=== PATIENT | female | born 1965 | race American Indian/Alaskan Native ===

== ENCOUNTER 2017-03-20 10:58 | Outpatient (CLI) | payer OTHER ==
--- NOTE | 2017-03-20 14:25 | Mammography Report ---
The patient had this exam on the date indicated above. It was indicated to us that previous films should be available that would be helpful in providing optimal evaluation with regards to the current study. A final report will be issued, pending receipt of the prior study. CAD was utilized.
== END 2017-03-20 10:59 | disposition home or self-care (01) ==
LOC: MAMMO 10:58
PROVIDERS: ATTEND Nurse Practitioner Family
DX: Z12.31 Encounter for screening mammogram for malignant neoplasm of breast (principal); I10 Essential (primary) hypertension
CPT/HCPCS: 77067; G0202

== ENCOUNTER 2017-06-04 07:35 | Outpatient (CLI) | payer OTHER ==
--- NOTE | 2017-06-04 09:47 | Ultrasound Report ---
Diagnostic left mammogram and targeted left breast ultrasound. History: Recall. Findings: The spot compression images of the upper left breast demonstrate effacement of the previously noted 2 parenchymal asymmetries. On the 90 degree view, the asymmetry in the anterior upper left breast demonstrates no suspicious features. Sonographic evaluation of the upper half of the left breast demonstrates no suspicious findings. An 8 x 4 mm intramammary node is seen at the 12:00 position. Impression: No suspicious findings. BI-RADS code: 2. Recommendation: Annual screening.
== END 2017-06-04 07:36 | disposition home or self-care (01) ==
LOC: MAMMO 07:35
PROVIDERS: ATTEND Nurse Practitioner Family
DX: R92.2 Inconclusive mammogram (principal)
CPT/HCPCS: 76642; G0206

== ENCOUNTER 2018-10-07 10:29 | Outpatient (CLI) | payer OTHER ==
--- NOTE | 2018-10-07 15:59 | Mammography Report ---
BILATERAL DIGITAL SCREENING MAMMOGRAM with CAD: 10/07/18 10:29:00 CLINICAL: Routine screening. COMPARISON:03/20/17 FINDINGS: The breasts are heterogeneously dense, which may obscure small masses.A few scattered benign calcifications. No mass, architectural distortion or suspicious calcifications. IMPRESSION: No mammographic evidence of malignancy. BI-RADS CATEGORY: 2 - - Benign RECOMMENDATION: Routine mammographic screening in one year. COMMENT: Patient follow-up letters are generated by our [employer] application.
== END 2018-10-07 10:30 | disposition home or self-care (01) ==
LOC: MAMMO 10:29
PROVIDERS: ATTEND Nurse Practitioner Family
DX: Z12.31 Encounter for screening mammogram for malignant neoplasm of breast (principal); I10 Essential (primary) hypertension; Z90.710 Acquired absence of both cervix and uterus
CPT/HCPCS: 77067

== ENCOUNTER 2019-12-10 10:51 | Outpatient (CLI) | payer OTHER ==
--- NOTE | 2019-12-10 16:11 | Mammography Report ---
DIGITAL SCREENING MAMMOGRAM WITH CAD, 12/10/2019 INDICATION: Routine screening mammography. TECHNIQUE: Digital bilateral 2D mammography was obtained in the craniocaudal and mediolateral obliq ue projections. This examination was interpreted with the benefit of Computer-Aided Detection analysi s. COMPARISON: 10/07/2018 FINDINGS: Breast Density: The breasts are heterogeneously dense, which may obscure small masses. There is no evidence of dominant mass, suspicious calcifications or architectural distortion in eithe r breast. IMPRESSION: No mammographic evidence of malignancy. Follow up recommendation: Routine yearly BI-RADS Category 2: Benign. A "normal" or negative report should not discourage follow up or biopsy of a clinically significant f inding. A written summary of these findings will be mailed to the patient. The patient will be entered into a mammography reporting system which will generate a reminder letter for the patient's next appointmen t at the appropriate interval. The [employer] recommends yearly mammograms starting at age 40 and continuing as l jamie as a woman is in good health. Breast MRI is recommended for women with an approximate 20-25% or greater lifetime risk of breast cancer, including women with a strong family history of breast or ova shayna cancer or who have been treated for Hodgkin's disease. Signer Name: Geo Wiggins MD Signed: 12/10/2019 4:07 PM Workstation Name: [id number]
== END 2019-12-10 10:52 | disposition home or self-care (01) ==
LOC: MAMMO 10:51
PROVIDERS: ATTEND Clinical Nurse Specialist Adult Health
DX: Z12.31 Encounter for screening mammogram for malignant neoplasm of breast (principal)
CPT/HCPCS: 77067

== ENCOUNTER 2021-01-25 09:46 | Outpatient (CLI) | payer OTHER ==
--- NOTE | 2021-01-25 11:20 | Mammography Report ---
DIGITAL SCREENING MAMMOGRAM WITH CAD, 01/25/2021 CLINICAL INFORMATION / INDICATION: Routine screening TECHNIQUE: Digital bilateral 2D mammography was obtained in the craniocaudal and mediolateral obliqu e projections. This examination was interpreted with the benefit of Computer-Aided Detection analysis . COMPARISON: 12/10/2019 FINDINGS: Breast Density: There are scattered areas of fibroglandular density. No dominant mass, suspicious calcifications, or architectural distortion in either breast. Right calcifications are stable. IMPRESSION: No mammographic evidence of malignancy. Follow up recommendation: Routine yearly BI-RADS Category 2: Benign. A "normal" or negative report should not discourage follow up or biopsy of a clinically significant f inding. A written summary of these findings will be mailed to the patient. The patient will be entered into a mammography reporting system which will generate a reminder letter for the patient's next appointmen t at the appropriate interval. [employer] recommends yearly mammograms starting at age 40 and continuing as l jamie as a woman is in good health. Breast MRI is recommended for women with an approximate 20-25% or greater lifetime risk of breast cancer, including women with a strong family history of breast or ova shayna cancer or who have been treated for Hodgkin's disease. Signer Name: Bib Baker MD Signed: 01/25/2021 11:16 AM Workstation Name: [id number]
== END 2021-01-25 09:47 | disposition home or self-care (01) ==
LOC: MAMMO 09:46
PROVIDERS: ATTEND Clinical Nurse Specialist Adult Health
DX: Z12.31 Encounter for screening mammogram for malignant neoplasm of breast (principal); N64.89 Other specified disorders of breast
CPT/HCPCS: 77067